=== PATIENT | male | born 1990 | race Caucasian/White ===

== ENCOUNTER 2016-08-24 19:57 | Emergency (ER) | payer BC ==
[2016-08-24 20:04] VITALS: BP 115/74; PULSE 88; TEMP 99.1; BMI 24.4
--- NOTE | 2016-08-24 20:06 | PDOC ---
History of Present Illness - General History Source: Patient Exam Limitations: No Limitations - History of Present Illness Initial Comments: 08/24/16 20:21 The patient is a 26-year-old male, with no significant past medical history, who presents to the ED with tick bite to left calf. Pt states that he was hiking in a wooded area [place] in [place] on Sunday. He discovered the tick this morning and states that it was latched onto his left calf. He now has a little red spot on his calf after removing the tick. Pt reports to the ED with the tick in a sealed plastic bag. He denies having been bit by a tick in the past. He does report that the area appears a bit inflamed, but he denies any numbness, tingling, warmth, or pain in the area. PAST MEDICAL HISTORY: no significant history PAST SURGICAL HISTORY: no significant history FAMILY HISTORY: no pertinent history SOCIAL HISTORY: Pt lives with family and is employed. Drinking socially, uses marijuana on occasions. Denies any drug use. MEDICATIONS: reviewed ALLERGIES: As per nursing notes ROS General: No fevers or chills, no weakness, no weight loss HEENT: No change in vision. No sore throat,. No ear pain CardioVascular: No chest pain or shortness of breath Respiratory:No cough, or wheezing. Gastrointestinal: no nausea, vomiting, diarrhea or constipation, No rectal bleeding Genitourinary: No dysuria, hematuria, or frequency Musculoskeletal: No joint or muscle pain or swelling Neurologic: No headache, vertigo, dizziness or loss of consciousness Psychiatric: nor depression Skin: +tick bite to left calf, little inflammation to the area Endocrine: no increased thirst or abnormal weight change Allergic: no skin or latex allergy All other systems reviewed and normal PE GENERAL: The patient is awake, alert, and fully oriented, in no acute distress. HEAD: Normal with no signs of trauma. EYES: Pupils equal, round and reactive to light, extraocular movements intact, sclera anicteric, conjunctiva clear. EXTREMITIES: Normal range of motion, no edema. NEUROLOGICAL: Normal speech, normal gait. PSYCH: Normal mood, normal affect. SKIN: Warm, Dry, normal turgor. +Very small area of erythema to the posterior mid calf. No associated bulls eyes rash. No increased warmth. Total diameter of area is approximately 3 mm. <Faye Cano - Last Filed: 08/24/16 20:33> - General History Source: Patient Exam Limitations: No Limitations - History of Present Illness Initial Comments: 08/24/16 20:43 A portion of this note was documented by scribe services under my direction. I have reviewed the details of the note, within reason, and agree with the documentation. The case summary and management plan written by me. Assessment and plan: This is a 26-year-old male who comes in status post removing a tick from his leg. The tick was a large tick and too large to be a tick that carries Lyme disease. Patient was reassured that this is not a tick that would transmit Lyme disease and was told to clean the area of the bite and put bacitracin on it as needed. Patient has a primary care doctor he can follow-up with as well. <Juany Grant I - Last Filed: 08/24/16 20:45> - General Chief Complaint: Bite Stated Complaint: TICK BITE Time Seen by Provider: 08/24/16 20:05 Past History <Faye Cano - Last Filed: 08/24/16 20:33> - Past Medical History Suicide Attempt (Hx): No Other medical history: DENIES - Psycho/Social/Smoking Cessation Hx Anxiety: No Suicidal Ideation: No Smoking History: Never smoked Hx Alcohol Use: Yes (occassionally) Substance Use Type: None <Juany Grant I - Last Filed: 08/24/16 20:45> - Past Medical History Allergies/Adverse Reactions: Allergies Allergy/AdvReac Type Severity Reaction Status Date / Time No Known Allergies Allergy Verified 08/15/14 23:48 Home Medications: Ambulatory Orders NK [No Known Home Medication] 08/15/14 *Physical Exam - Vital Signs Last Vital Signs Temp Pulse Resp BP Pulse Ox 99.1 F 88 16 115/74 97 08/24/16 20:02 08/24/16 20:02 08/24/16 20:02 08/24/16 20:02 08/24/16 20:02 <Faye Cano - Last Filed: 08/24/16 20:33> - Vital Signs Last Vital Signs Temp Pulse Resp BP Pulse Ox 99.1 F 88 16 115/74 97 08/24/16 20:02 08/24/16 20:02 08/24/16 20:02 08/24/16 20:02 08/24/16 20:02 <Juany Grant I - Last Filed: 08/24/16 20:45> *DC/Admit/Observation/Transfer - Attestations Scribe Attestion: 08/24/16 20:23 Documentation prepared by Faye Cano, acting as chief medical technologist for Juany Grant MD. <Faye Cano - Last Filed: 08/24/16 20:33> <Juany Grant I - Last Filed: 08/24/16 20:45> Diagnosis at time of Disposition: Tick bite of calf Qualifiers: Laterality: left - Discharge Dispostion Disposition: HOME Condition at time of disposition: Stable - Referrals Referrals: Emmy Mcarthur MD [Primary Care Provider] - - Patient Instructions Additional Instructions: You can apply a little antibiotic ointment to the area where the tick bite U you if it becomes tender or swollen. Return to the emergency department immediately with ANY new, persistent or worsening symptoms. Continue any medications as previously prescribed by your physician. You should follow up with your primary doctor as soon as possible regarding today's emergency department visit. . Please make sure your doctor reviews the results of your emergency evaluation. Thank you for coming to the Emergency Department today for your care. It was a pleasure to see you today. Please note that your evaluation is INCOMPLETE until you follow-up with your doctor.
== END 2016-08-24 20:37 | disposition home or self-care (01) ==
LOC: FER 19:57
DX: S80.862A Insect bite (nonvenomous), left lower leg, initial encounter (principal); W57.XXXA Bitten or stung by nonvenomous insect and other nonvenomous arthropods, initial encounter; Y93.01 Activity, walking, marching and hiking; Y92.9 Unspecified place or not applicable
CPT/HCPCS: 99281-25